=== PATIENT | male | born 1975 | race Two or more races ===

== ENCOUNTER 2018-08-05 01:28 | Emergency (ER) | payer OTHER ==
[2018-08-05] MEDS ORDERED: DIPH,PERTUS(ACELL)TETVAC-LF 0.5 ML VIAL IM ONE (01:31)
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
[2018-08-05 01:43] LABS: Basophils % (A) 1 %; Eosinophils # (A) 0.3 k/uL (0-0.7); Eosinophils % (A) 4 %; HCT 43.8 % (39.0-53.0); HGB 14.5 gm/dL (13.0-17.5); Lymphocytes # (A) 2.6 k/uL (1.0-4.8); Lymphocytes % (A) 37 %; MCH 30.6 pg (25.0-35.0); MCV 92.7 fL (80.0-100.0); Mean Platelet Volume 7.2; Monocytes # (A) 0.4 k/uL (0-1.0); Monocytes % (A) 5 %; Neutrophils # (A) 3.7 k/uL (1.3-7.7); Neutrophils % (A) 52 %; Platelet Count 147 k/uL (150-450); RBC 4.72 m/uL (4.30-5.90); RDW 12.9 % (11.5-15.5); WBC 7.1 k/uL (3.8-10.6)
[2018-08-05 01:51] LABS: ALT 39 U/L (21-72); AST 38 U/L (17-59); Albumin 3.6 g/dL (3.5-5.0); Alkaline Phosphatase 75 U/L (38-126); Amylase 40 U/L (30-110); Anion Gap 9 mmol/L; Blood Urea Nitrogen 11 mg/dL (9-20); Calcium 7.6 mg/dL (8.4-10.2); Carbon Dioxide 20 mmol/L (22-30); Chloride 109 mmol/L (98-107); Glucose 110 mg/dL (74-99); Lipase 71 U/L (23-300); Potassium 3.8 mmol/L (3.5-5.1); Sodium 138 mmol/L (137-145); Total Bilirubin 0.3 mg/dL (0.2-1.3); Total Protein 6.5 g/dL (6.3-8.2)
[2018-08-05 01:56] LABS: Partial Thromboplastin Time 24.5 sec (22.0-30.0); Prothrombin Time 10.2 sec (9.0-12.0)
[2018-08-05] MEDS ORDERED: ETOMIDATE 2 MG/ML 10 ML VIAL IVP STA (01:58)
[2018-08-05 01:59] LABS: Alcohol 175 mg/dL
[2018-08-05 01:59] LABS: Glucose,Whole Blood 111 mg/dL (75-99)
[2018-08-05] MEDS: PROPOFOL 1,000 MG in EMPTY BAG 1 BAG IV ONE ×2 (02:06→03:54)
[2018-08-05 02:17] LABS: Creatine Kinase MB 1.4 ng/mL (0.0-2.4)
[2018-08-05 02:21] LABS: Troponin I 0.016 ng/mL (0.000-0.034)
[2018-08-05] MEDS: LORazepam 2 MG/ML INJ IV STA ×2 (02:26→02:31)
--- NOTE | 2018-08-05 02:30 | XR ---
EXAMINATION TYPE: XR chest 1V portable DATE OF EXAM: 08/05/2018 COMPARISON: NONE HISTORY: Trauma. Pain. TECHNIQUE: Single frontal view of the chest is obtained. FINDINGS: A single view on the backboard shows no heart failure nor confluent pneumonic infiltrate. Trachea is midline. There is no sign of a pneumothorax. I see no pleural effusion. There are chest le ads. I see no displaced rib fractures. IMPRESSION: No active cardiopulmonary disease.
--- NOTE | 2018-08-05 02:32 | XR ---
EXAMINATION TYPE: XR pelvis AP view DATE OF EXAM: 08/05/2018 COMPARISON: NONE HISTORY: Trauma. Pain. TECHNIQUE: Single view FINDINGS: Single view on the backboard was obtained. Proximal femurs appear intact. Exam is limited b y overlying artifact. The pelvic ring appears intact. Sacroiliac joints appear normal. I see no fract ure. IMPRESSION: Negative pelvis x-ray exam.
--- NOTE | 2018-08-05 02:33 | XR ---
EXAMINATION TYPE: XR chest 1V portable DATE OF EXAM: 08/05/2018 COMPARISON: Today HISTORY: Check tube placement TECHNIQUE: Single frontal view of the chest is obtained. FINDINGS: Endotracheal tube appears in fairly good position 5 cm from the negrita. There are bilatera l pulmonary infiltrates in the right upper lobe and left lower lobe with patchy atelectasis. There is no evidence of pneumothorax. Trachea is midline. I see no pleural effusion. There are chest leads. IMPRESSION: Endotracheal tube appears in good position.
[2018-08-05] MEDS ORDERED: MORPHINE SULFATE 4 MG/ML SYRINGE IVP STA (03:11)
--- NOTE | 2018-08-05 03:12 | XR ---
EXAMINATION TYPE: XR abdomen 1V DATE OF EXAM: 08/05/2018 COMPARISON: NONE HISTORY: Tube placed TECHNIQUE: Single view FINDINGS: There is nasogastric tube that appears to have the tip in the gastric fundus. IMPRESSION: Nasogastric tube appears in good position.
--- NOTE | 2018-08-05 03:19 | CT ---
EXAMINATION TYPE: CT brain demetrio wo con DATE OF EXAM: 08/05/2018 COMPARISON: None HISTORY: trauma CT DLP: 1702.50 mGycm Automated exposure control for dose reduction was used. TECHNIQUE: CT scan of the head and cervical spine are performed without contrast. FINDINGS: There is high attenuation at the floor of the left anterior cranial fossa consistent with acute subdural hemorrhage. There is similar high attenuation over the left temporal lobe convexity. There is a 2.4 cm high attenuation focus in the left posterior temporal lobe consistent with acute pa renchymal hemorrhage. There is no significant midline shift. There is mucosal thickening in the ethmo id sinus. The calvarium is intact. I see no skull fracture. There is also some degree of subarachnoid hemorrhage in the base of the left frontal lobe. There is possible parenchymal hemorrhage at the inf erior left frontal lobe. The cervical vertebra have normal spacing and alignment. Posterior elements are intact. The skull bas e is intact. Facet joints appear normal. IMPRESSION: There is left side subdural and subarachnoid hemorrhage as described above. This measures up to 8 mm in thickness at the base of the left frontal lobe and 5 mm in thickness over the left temporal lobe c onvexity. There is also acute parenchymal hemorrhage left posterior temporal lobe. This exam was disc ussed with ER physician at 3:15 AM. There is possible small areas of parenchymal hemorrhage at the ba se of the left frontal lobe.
[2018-08-05] MEDS ORDERED: SODIUM CHLORIDE 0.9% 1,000 ML IV STA (03:21)
--- NOTE | 2018-08-05 03:23 | CT ---
EXAMINATION TYPE: CT ChestAbdPelvis w con DATE OF EXAM: 08/05/2018 COMPARISON: None HISTORY: trauma CT DLP: 1715.10 mGycm Automated exposure control for dose reduction was used. CONTRAST: CT scan of the chest, abdomen and pelvis is performed without Oral Contrast and with IV Contrast, pat ient injected with 100 mL of Isovue 300. FINDINGS: There are bilateral pleural effusions. There is bilateral patchy pulmonary infiltrates and atelectasi s posteriorly. There is no pericardial effusion. There is no definite pneumothorax. Liver spleen pancreas gallbladder appear normal. Nasogastric tube is noted in good position in the [facility]. There is no adrenal mass. Kidneys show satisfactory contrast opacification. There is no hydronephrosi s. There is no retroperitoneal adenopathy. Appendix appears normal. Bladder distends smoothly. There is no free fluid in the pelvis. There is no intestinal wall thickeni ng. There are no dilated loops. There is no sign of pneumoperitoneum. Vertebra appear intact. There i s no compression fracture. Sternum appears normal. Endotracheal tube is noted. The ribs appear intact . Bony pelvis is intact. Bladder distends smoothly. There is no evidence of a pelvic mass. IMPRESSION: Patchy infiltrates and atelectasis at the posterior lung bases. No pneumothorax. No fract ure seen. Normal appendix. No sign of traumatic injury within the abdomen and pelvis.
[2018-08-05 03:27] LABS: Appearance,Urine Clear (Clear); Bilirubin,Urine Negative (Negative); Blood,Urine Negative (Negative); Color,Urine Colorless; Glucose,Urine (UA) Negative (Negative); Ketones,Urine Negative (Negative); Leukocyte Esterase,Urine Negative (Negative); Nitrite,Urine Negative (Negative); Protein,Urine Negative (Negative); Specific Gravity,Urine 1.013 (1.001-1.035); Urobilinogen,Urine <2.0 mg/dL (<2.0)
[2018-08-05] MEDS ORDERED: SODIUM CHLORIDE 0.9% 1,000 ML IV SCH (03:30)
[2018-08-05] MEDS ORDERED: SUCCINYLCHOLINE CHLORIDE VIAL 200 MG/10 ML VIAL IV STA (03:31)
[2018-08-05 03:48] LABS: Amphetamine Screen,Urine Not Detected (NotDetected); Barbiturate Screen,Urine Not Detected (NotDetected); Benzodiazepines Screen,Urine Not Detected (NotDetected); Cocaine Screen,Urine Detected (NotDetected); Methadone Screen, Urine Not Detected (NotDetected); Opiate Screen,Urine Not Detected (NotDetected); Oxycodone Screen, Urine Not Detected (NotDetected); Phencyclidine Screen,Urine Not Detected (NotDetected); Tricyclic Antidepressant,Urine Not Detected (NotDetected); Urn Cannabinoid Scrn Detected (NotDetected)
[2018-08-05 05:37] VITALS: BP 141/80; PULSE 88; RESP 16; TEMP 98
--- NOTE | 2018-08-08 08:49 | CDI ---
Documentation Clarification OP Dear Dr. Edilberto Moody Please provide abrasion location. Thank you, Mami Foster Skiver Operator If you have any questions, please contact [employer] at [phone] [facility]
== END 2018-08-05 04:10 | disposition other institution (70) ==
LOC: EC 01:28
DX: S06.5X0A Traumatic subdural hemorrhage without loss of consciousness, initial encounter (principal); S06.2X0A Diffuse traumatic brain injury without loss of consciousness, initial encounter; F10.120 Alcohol abuse with intoxication, uncomplicated; S01.01XA Laceration without foreign body of scalp, initial encounter; S50.812A Abrasion of left forearm, initial encounter; S50.811A Abrasion of right forearm, initial encounter; S31.000A Unspecified open wound of lower back and pelvis without penetration into retroperitoneum, initial encounter; R40.2412 Glasgow coma scale score 13-15, at arrival to emergency department; Z23 Encounter for immunization; V86.05XA Driver of 3- or 4- wheeled all-terrain vehicle (ATV) injured in traffic accident, initial encounter; Y92.89 Other specified places as the place of occurrence of the external cause; Y90.6 Blood alcohol level of 120-199 mg/100 ml
CPT/HCPCS: 99285; 31500; 51702; 96374; 96375; 96360; 96361 ×3; 90471; 36415; 94002; 86900; 86901; 80053; 82150; 82550; 82553; 83605; 83690; 84484; 85025; 85610; 85730; 86850; 81003; 80306; 72170; 71045; 74018; 72125; 70450; 71260; 74177; 90715; G0480; J0330; J2060; J2270; J2704; Q9967; 80320

== ENCOUNTER 2018-12-09 16:46 | Emergency (ER) | payer OTHER ==
[2018-12-09 17:06] VITALS: RESP 18
[2018-12-09 17:21] LABS: Basophils % (A) 0 %; Eosinophils # (A) 0.2 k/uL (0-0.7); Eosinophils % (A) 3 %; HCT 50.9 % (39.0-53.0); HGB 16.3 gm/dL (13.0-17.5); Lymphocytes # (A) 1.8 k/uL (1.0-4.8); Lymphocytes % (A) 28 %; MCV 93.8 fL (80.0-100.0); Mean Platelet Volume 7.8; Monocytes # (A) 0.3 k/uL (0-1.0); Monocytes % (A) 5 %; Neutrophils # (A) 4.1 k/uL (1.3-7.7); Neutrophils % (A) 63 %; Platelet Count 177 k/uL (150-450); RBC 5.43 m/uL (4.30-5.90); RDW 14.5 % (11.5-15.5); WBC 6.4 k/uL (3.8-10.6)
[2018-12-09 17:36] LABS: ALT 28 U/L (21-72); AST 25 U/L (17-59); Albumin 4.7 g/dL (3.5-5.0); Alkaline Phosphatase 107 U/L (38-126); Anion Gap 9 mmol/L; Blood Urea Nitrogen 13 mg/dL (9-20); Calcium 9.5 mg/dL (8.4-10.2); Carbon Dioxide 25 mmol/L (22-30); Chloride 106 mmol/L (98-107); Glucose 99 mg/dL (74-99); Potassium 4.2 mmol/L (3.5-5.1); Sodium 140 mmol/L (137-145); Total Bilirubin 0.4 mg/dL (0.2-1.3); Total Protein 8.1 g/dL (6.3-8.2)
[2018-12-09] MEDS ORDERED: ONDANSETRON 4 MG/2 ML VIAL IVP STA (17:46)
[2018-12-09] MEDS ORDERED: SODIUM CHLORIDE 0.9% 1,000 ML IV STA (17:47)
--- NOTE | 2018-12-09 18:14 | CT ---
EXAMINATION TYPE: CT brain wo con DATE OF EXAM: 12/09/2018 COMPARISON: 08/05/2018 HISTORY: Seizure. CT DLP: 1095.4 mGycm. Automated Exposure Control for Dose Reduction was Utilized. TECHNIQUE: CT scan of the head is performed without contrast. FINDINGS: The ventricles have normal size. There is no mass effect nor midline shift. There is hypode nsity in the inferior left frontal lobe. This measures 3 x 1.5 cm and consistent with encephalomalaci a. There is a 2 cm irregular shaped area of hypodensity in the lateral left temporal lobe consistent with encephalomalacia. The calvarium is intact. IMPRESSION: Encephalomalacia in the left frontal lobe and left temporal lobe in the area of hemorrhage evident on the CT scan of 08/05/2018. No acute intracranial abnormality.
[2018-12-09] MEDS ORDERED: levETIRAcetam 500 MG TAB PO STA ×2 (18:22→19:07)
[2018-12-09] MEDS ORDERED: IBUPROFEN 800 MG TAB PO STA (18:26)
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
[2018-12-09] MEDS ORDERED: ONDANSETRON 4 MG ODT STARTER PACK 2 TAB BTL PO STA (19:07)
[2018-12-09 20:23] VITALS: BP 143/86; PULSE 85; TEMP 97.9
== END 2018-12-09 20:23 | disposition home or self-care (01) ==
LOC: EC 16:46
DX: R56.9 Unspecified convulsions (principal); R11.10 Vomiting, unspecified; G93.89 Other specified disorders of brain; F17.200 Nicotine dependence, unspecified, uncomplicated
CPT/HCPCS: 36415; 80053; 85025; 70450; 99285; 96374; 96361 ×2; J2405; S0119